=== PATIENT | female | born 1950 | race Caucasian/White ===

== ENCOUNTER 2017-09-30 07:42 | Inpatient (IN) | payer OTHER ==
[~2017-09-30] VITALS: Ht 167.6 cm; Wt 92.5 kg
[~2017-09-30 07:42] MED LIST: FLUT1DIS3 INH; HYDR12.585 PO; LOSA100T11 PO; MONT10TA25 PO; RANI-362 PO
[2017-09-30] MEDS ORDERED: GABAPENTIN 300 MG CAPSULE ONE (08:29)
[2017-09-30] MEDS ORDERED: CELECOXIB 200 MG CAPSULE ONE (08:29)
[2017-09-30] MEDS ORDERED: oxyCODONE HCL 10 MG TAB.ER.12H PO ONE (08:30)
[2017-09-30] MEDS ORDERED: ACETAMINOPHEN 500 MG TABLET ONE (08:30)
[2017-09-30] MEDS ORDERED: TRANEXAMIC ACID 650 MG TABLET ONE (08:31)
[2017-09-30] MEDS ORDERED: CEFAZOLIN 2 GM IVPB PREMIX 50 ML IV ONE (08:34)
[2017-09-30] MEDS ORDERED: CLINDAMYCIN PHOSPHATE 900 mg/50mL D5W IV ONE (09:41)
[2017-09-30] MEDS ORDERED: PROPOFOL 200MG/ 20ML VIAL (DIPRIVAN) IV ONE (09:41)
[2017-09-30] MEDS ORDERED: ROPIVACAINE 40 MG/20 ML AMP EP ONE (09:41)
[2017-09-30] MEDS ORDERED: ROPIVACAINE HCL/PF 5 MG/ML 0.5% 30 ML VIAL INJ ONE (09:41)
[2017-09-30] MEDS ORDERED: LR 1,000 ML IV.SOLN IV ONE (09:41)
[2017-09-30] MEDS ORDERED: EPINEPHrine 1 MG/ML AMP IVP ONE (09:41)
[2017-09-30] MEDS ORDERED: VANCOMYCIN HCL 1000 MG/VIAL IV ONE (09:41)
[2017-09-30] MEDS ORDERED: ROPIVACAINE 0.2% (NAROPIN) PF SOLUTION 100 ML BOTTLE EP ONE (09:41)
[2017-09-30] MEDS ORDERED: SEVOFLURANE 15 MIN GAS INH ONE (09:41)
[2017-09-30] MEDS ORDERED: NORMAL SALINE 10 ML VIAL IVP ONE (09:41)
[2017-09-30] MEDS ORDERED: NS 100 ML BAG IV ONE (09:41)
[2017-09-30] MEDS ORDERED: fentaNYL CITRATE/PF 100 MCG/2 ML AMP IVP ONE (09:41)
[2017-09-30] MEDS ORDERED: KETOROLAC TROMETHAMINE 30 MG VIAL IVP ONE (09:41)
[2017-09-30] MEDS ORDERED: MIDAZOLAM HCL 5 MG/5 ML VIAL IVP ONE (09:41)
[2017-09-30] MEDS ORDERED: ONDANSETRON HCL 4 MG/2 ML VIAL IVP ONE (09:41)
[2017-09-30] MEDS ORDERED: TRANEXAMIC ACID 1,000 MG/10 ML VIAL IV ONE (09:41)
[2017-09-30] MEDS: ROPIVACAINE 0.2% 550 ML INJ SCH ×2 (09:41→10:27)
[2017-09-30] MEDS ORDERED: MORPHINE 4 MG/ML INJ. SYRINGE IVP PRN (09:45)
[2017-09-30] MEDS ORDERED: SENNOSIDES 8.6 MG TABLET PO PRN (09:45)
[2017-09-30] MEDS ORDERED: ONDANSETRON HCL 4 MG/2 ML VIAL IVP PRN ×3 (09:45→10:30)
[2017-09-30] MEDS ORDERED: KETOROLAC TROMETHAMINE 15 MG VIAL IVP PRN (09:45)
[2017-09-30] MEDS ORDERED: VANCOMYCIN HCL 1 GM/NS PREMIX 250 ML IV ONE ×2 (09:45→10:00)
[2017-09-30] MEDS ORDERED: PROMETHAZINE HCL 25 MG/ML AMP IVP PRN (09:45)
[2017-09-30] MEDS ORDERED: LR 1,000 ML IV SCH (10:26)
[2017-09-30] MEDS ORDERED: DIPHENHYDRAMINE INJ 50 MG/ML VIAL IVP PRN (10:30)
[2017-09-30] MEDS ORDERED: MEPERIDINE HCL/PF 25 MG/ML DISP.SYRIN IVP PRN ×2 (10:30)
[2017-09-30] MEDS ORDERED: HYDROmorphone 2 MG/ML VIAL IVP PRN ×2 (10:30)
[2017-09-30] MEDS ORDERED: NALBUPHINE HCL 10 MG/ML AMP IVP PRN (10:30)
[2017-09-30] MEDS ORDERED: HYDROmorphone 1 MG INJ. 1 MG/ML AMPUL IVP PRN ×2 (10:30)
[2017-09-30] MEDS ORDERED: POLYMYXIN 500,000/BACIT.10,000 UNITS in NS IRR 1 L IR ONE (10:37)
[2017-09-30] MEDS ORDERED: HYDROmorphone 1 MG INJ. 1 MG/ML AMPUL ONE (12:46)
[2017-09-30 13:30] VITALS: BP_SYST 117
[2017-09-30] MEDS: D5LR 1,000 ML IV SCH ×2 (16:17→19:41)
[2017-09-30] MEDS: ACETAMINOPHEN 500 MG TABLET PO SCH ×2 (16:18→20:45)
[2017-09-30] MEDS: MONTELUKAST 10 MG TABLET PO SCH (18:27)
[2017-09-30 19:35] VITALS: BP_SYST 101
[2017-09-30] MEDS: GABAPENTIN 300 MG CAPSULE PO SCH (20:45)
[2017-09-30] MEDS: FAMOTIDINE 20 MG TABLET PO SCH (20:46)
[2017-09-30] MEDS: CELECOXIB 200 MG CAPSULE PO SCH (20:48)
[2017-09-30] MEDS ORDERED: FLUTICASONE 250 mCg/SALMETEROL 50 mCg DISKUS W.DEV INH SCH (21:00)
[2017-09-30] MEDS ORDERED: NON-FORMULARY MEDICATION (Ranitidine Hcl (Acid Reducer 150) 1 TAB) PO SCH (21:00)
[2017-10-01 00:32] VITALS: BP_SYST 104
[2017-10-01] MEDS: oxyCODONE HCL 5 MG TABLET PO PRN ×4 (02:19→23:43)
[2017-10-01] MEDS: D5LR 1,000 ML IV SCH ×2 (02:23→20:51)
[2017-10-01 04:30] VITALS: BP_SYST 106
[2017-10-01 06:29] LABS: BASOPHILS % (AUTO) 0.2 % (0.0-2.0); EOSINOPHILS # (AUTO) 0.1 K/uL (0.0-0.4); EOSINOPHILS % (AUTO) 0.6 % (0.0-4.0); HEMATOCRIT 34.1 % (36-48); HEMOGLOBIN 11.5 g/dL (12.0-16.0); LYMPHOCYTES # (AUTO) 1.2 K/uL (1.0-5.5); MEAN CORPUSCULAR HEMOGLOBIN 32 pg (27-31); MEAN CORPUSCULAR HGB CONC 34 % (32-36); MEAN CORPUSCULAR VOLUME 94 fL (79.0-98.0); MONOCYTES # (AUTO) 0.9 K/uL (0.0-1.0); MONOCYTES % (AUTO) 8.2 % (1.7-9.3); NEUTROPHILS # (AUTO) 8.6 K/uL (1.8-7.7); PLATELET COUNT (AUTO) 186 K/uL (130-430); RED BLOOD CELL COUNT(AUTO) 3.62 MIL/uL (4.2-6.2); RED CELL DISTRIBUTION WIDTH 12.1 % (9.0-15.0); WHITE BLOOD COUNT (AUTO) 10.8 K/uL (4.8-10.8)
[2017-10-01 06:37] LABS: CALCIUM 8.3 mg/dL (8.4-11.0); CREATININE 0.56 mg/dL (0.55-1.30); POTASSIUM 3.7 mmol/L (3.5-5.1)
[2017-10-01 08:05] VITALS: BP_SYST 104
[2017-10-01] MEDS: HYDROCHLOROTHIAZIDE 12.5 MG CAPSULE (HCTZ) PO SCH (09:00)
[2017-10-01] MEDS: LOSARTAN POTASSIUM 50 MG TABLET (COZAAR) PO SCH (09:00)
[2017-10-01] MEDS: CELECOXIB 200 MG CAPSULE PO SCH ×2 (09:18→20:54)
[2017-10-01] MEDS: FAMOTIDINE 20 MG TABLET PO SCH ×2 (09:18→20:54)
[2017-10-01] MEDS: ACETAMINOPHEN 500 MG TABLET PO SCH ×3 (09:19→20:54)
[2017-10-01] MEDS: RIVAROXABAN 10 MG TABLET PO SCH (09:31)
[2017-10-01] MEDS: ROPIVACAINE 0.2% 550 ML INJ SCH ×2 (09:41→10:27)
[2017-10-01] MEDS: DIPHENHYDRAMINE HCL 50 MG CAPSULE PO PRN ×2 (13:53→20:54)
[2017-10-01 14:48] VITALS: BP_SYST 110
[2017-10-01 17:25] VITALS: BP_SYST 185
[2017-10-01] MEDS ORDERED: FLUTICASONE/VILANTEROL 1 EACH BLST.W.DEV INH ONE (19:00)
[2017-10-01] MEDS: MONTELUKAST 10 MG TABLET PO SCH (19:10)
[2017-10-01 20:15] VITALS: BP_SYST 112
[2017-10-01] MEDS: GABAPENTIN 300 MG CAPSULE PO SCH (20:54)
[2017-10-02] VITALS (7 sets, daily range): BP systolic 106–141
[2017-10-02 06:27] LABS: BASOPHILS % (AUTO) 0.4 % (0.0-2.0); EOSINOPHILS # (AUTO) 0.3 K/uL (0.0-0.4); HEMATOCRIT 34.7 % (36-48); HEMOGLOBIN 11.4 g/dL (12.0-16.0); LYMPHOCYTES # (AUTO) 1.1 K/uL (1.0-5.5); LYMPHOCYTES % (AUTO) 14.1 % (20.5-51.5); MEAN CORPUSCULAR HEMOGLOBIN 31 pg (27-31); MEAN CORPUSCULAR HGB CONC 33 % (32-36); MEAN CORPUSCULAR VOLUME 95 fL (79.0-98.0); MONOCYTES # (AUTO) 0.7 K/uL (0.0-1.0); MONOCYTES % (AUTO) 9.8 % (1.7-9.3); NEUTROPHILS # (AUTO) 5.4 K/uL (1.8-7.7); NEUTROPHILS % (AUTO) 71.7 % (40.0-70.0); PLATELET COUNT (AUTO) 169 K/uL (130-430); RED BLOOD CELL COUNT(AUTO) 3.66 MIL/uL (4.2-6.2); RED CELL DISTRIBUTION WIDTH 12.1 % (9.0-15.0); WHITE BLOOD COUNT (AUTO) 7.5 K/uL (4.8-10.8)
[2017-10-02] MEDS: oxyCODONE HCL 5 MG TABLET PO PRN ×2 (06:32→13:54)
[2017-10-02 07:04] LABS: CALCIUM 8.5 mg/dL (8.4-11.0); CREATININE 0.64 mg/dL (0.55-1.30)
[2017-10-02] MEDS ORDERED: FLUTICASONE/VILANTEROL 1 EACH BLST.W.DEV INH SCH (09:00)
[2017-10-02] MEDS: RIVAROXABAN 10 MG TABLET PO SCH (09:40)
[2017-10-02] MEDS: LOSARTAN POTASSIUM 50 MG TABLET (COZAAR) PO SCH (09:40)
[2017-10-02] MEDS: FAMOTIDINE 20 MG TABLET PO SCH (09:41)
[2017-10-02] MEDS: HYDROCHLOROTHIAZIDE 12.5 MG CAPSULE (HCTZ) PO SCH (09:41)
[2017-10-02] MEDS: CELECOXIB 200 MG CAPSULE PO SCH (09:41)
[2017-10-02] MEDS: ACETAMINOPHEN 500 MG TABLET PO SCH ×2 (09:49→15:51)
== END 2017-10-02 16:15 | DRG 470 ==
LOC: SMU 07:42 → STU 13:30 → SMU 10-02 10:11
PROVIDERS: ADMIT Orthopaedic Surgery; ATTEND Orthopaedic Surgery
PROC: 0SRC0J9 Replacement of Right Knee Joint with Synthetic Substitute, Cemented, Open Approach (ICD-10-PCS; principal; 2017-09-30 10:00)
DX: M17.11 Unilateral primary osteoarthritis, right knee (principal); I10 Essential (primary) hypertension; J45.909 Unspecified asthma, uncomplicated; Z85.42 Personal history of malignant neoplasm of other parts of uterus; Z88.0 Allergy status to penicillin
CPT/HCPCS: 36415; 80048; 85025; 87081; 88305; 88311; 97039; 97110-GP; 97116-GP; 97530-GP; C1713; C1776; J0171; J0690; J1170; J1885; J2250; J2270; J2405; J2704; J2795; J3010; J3370; J3490; J7120; Q0163

== ENCOUNTER 2022-11-29 05:30 | Day surgery (SDC) | payer OTHER ==
[~2022-11-29] VITALS: Ht 165.1 cm; Wt 106.6 kg
[~2022-11-29 05:30] MED LIST changes: -LOSA100T11 PO; +LOSA100T3 PO; +MONT-40 PO; -MONT10TA25 PO
[2022-11-29] MEDS ORDERED: SIMETHICONE 40 MG/0.6 ML ML ONE (07:35)
[2022-11-29] MEDS: fentaNYL CITRATE/PF 100 MCG/2 ML AMP ONE ×3 (07:39→07:51)
[2022-11-29] MEDS: MIDAZOLAM HCL 5 MG/5 ML VIAL ONE ×3 (07:39→07:48)
[2022-11-29 12:19] VITALS: BP_SYST 96
== END 2022-11-29 08:40 | disposition home or self-care (01) ==
LOC: SMU 05:30 → SDS 05:30
PROVIDERS: ATTEND Internal Medicine Gastroenterology
DX: R13.10 Dysphagia, unspecified (principal); K29.50 Unspecified chronic gastritis without bleeding; K25.9 Gastric ulcer, unspecified as acute or chronic, without hemorrhage or perforation; K20.90 Esophagitis, unspecified without bleeding; Z88.0 Allergy status to penicillin; Z79.01 Long term (current) use of anticoagulants; Z79.899 Other long term (current) drug therapy; Z20.822 Contact with and (suspected) exposure to COVID-19
CPT/HCPCS: 36415 ×2; 43248; 43239; 87426; 88305; 88312; 88313; 99152; U0003; G0378; J2250; J3010; C1769

== ENCOUNTER 2023-02-21 06:00 | Day surgery (SDC) | payer OTHER ==
[~2023-02-21] VITALS: Ht 165.1 cm; Wt 108.9 kg
[~2023-02-21 06:00] MED LIST changes: -LOSA100T3 PO; +LOSA100T4 PO
[2023-02-21] MEDS ORDERED: LIDOCAINE 1% 10 MG/ML, 20 ML MDV INJ ONE (06:01)
[2023-02-21] MEDS ORDERED: LR 1,000 ML IV.SOLN IV ONE (06:01)
[2023-02-21] MEDS ORDERED: PROPOFOL 200MG/ 20ML VIAL (DIPRIVAN) IV ONE (06:01)
[2023-02-21 09:57] VITALS: BP_SYST 118
== END 2023-02-21 09:35 | disposition home or self-care (01) ==
LOC: SDS 06:00 → SMU 06:00 → SDS 09:35
PROVIDERS: ATTEND Internal Medicine Gastroenterology
DX: K56.41 Fecal impaction (principal); K63.5 Polyp of colon; K57.30 Diverticulosis of large intestine without perforation or abscess without bleeding; K64.9 Unspecified hemorrhoids; Z86.010 Personal history of colon polyps; Z85.42 Personal history of malignant neoplasm of other parts of uterus; Z79.899 Other long term (current) drug therapy; Z20.822 Contact with and (suspected) exposure to COVID-19
CPT/HCPCS: 45385; 87426; 36415; 88305; J2001; J2704; J7120

== ENCOUNTER 2023-08-12 23:18 | Emergency (ER) | payer OTHER ==
[~2023-08-12] VITALS: Ht 165.1 cm; Wt 111.1 kg
[2023-08-12 23:27] VITALS: BP_SYST 153; PULSE 99; RESP 18; TEMP 98.1; O2SAT 95
[2023-08-13 00:40] LABS: BASOPHILS % (AUTO) 0.4 % (0.0-2.0); EOSINOPHILS # (AUTO) 0.2 K/uL (0.0-0.4); EOSINOPHILS % (AUTO) 3.1 % (0.0-4.0); HEMATOCRIT 41.2 % (36-48); HEMOGLOBIN 13.4 g/dL (12.0-16.0); LYMPHOCYTES # (AUTO) 1.7 K/uL (1.0-5.5); LYMPHOCYTES % (AUTO) 28.6 % (20.5-51.5); MEAN CORPUSCULAR HEMOGLOBIN 30 pg (27-31); MEAN CORPUSCULAR HGB CONC 32 % (32-36); MEAN CORPUSCULAR VOLUME 93 fL (79.0-98.0); MONOCYTES # (AUTO) 0.5 K/uL (0.0-1.0); MONOCYTES % (AUTO) 8.8 % (1.7-9.3); NEUTROPHILS # (AUTO) 3.5 K/uL (1.8-7.7); NEUTROPHILS % (AUTO) 59.1 % (40.0-70.0); PLATELET COUNT (AUTO) 179 K/uL (130-430); RED BLOOD CELL COUNT(AUTO) 4.43 MIL/uL (4.2-6.2)
[2023-08-13 00:50] LABS: ANION GAP 7 (5-15); CALCIUM 8.9 mg/dL (8.4-11.0); CARBON DIOXIDE 29 mmol/L (23-29); CHLORIDE 106 mmol/L (98-107); CREATININE 0.64 mg/dL (0.55-1.30); GLUCOSE 121 mg/dL (74-106); POTASSIUM 3.4 mmol/L (3.5-5.1); SODIUM SERUM 142 mmol/L (136-145); UREA NITROGEN, BLOOD 12 mg/dL (8-21)
[2023-08-13 01:03] LABS: ALANINE AMINOTRANSFERASE 17 U/L (12-78); ALBUMIN 3.1 g/dL (3.4-4.8); ASPARTATE AMINOTRANSFERASE 11 U/L (10-37); THYROID STIMULATING HORMONE 1.83 uIu/mL (0.34-4.82); TOTAL BILIRUBIN 0.3 mg/dL (0.0-1.0); TOTAL PROTEIN, SERUM 5.9 g/dL (6.4-8.3)
[2023-08-13 02:00] VITALS: BP_SYST 123; PULSE 79; RESP 16; TEMP 98.7; O2SAT 94
[2023-08-13] MEDS ORDERED: POTASSIUM CHLORIDE 20 MEQ/PKT PACKET PO ONE (02:00)
== END 2023-08-13 02:00 | disposition home or self-care (01) ==
LOC: SED 23:18
DX: R00.2 Palpitations (principal); E87.6 Hypokalemia; J45.909 Unspecified asthma, uncomplicated; I10 Essential (primary) hypertension; K21.9 Gastro-esophageal reflux disease without esophagitis; Z88.0 Allergy status to penicillin; Z88.8 Allergy status to other drugs, medicaments and biological substances; Z86.79 Personal history of other diseases of the circulatory system; Z85.9 Personal history of malignant neoplasm, unspecified; Z79.899 Other long term (current) drug therapy
CPT/HCPCS: 36415; 71045; 80053; 83880; 84439; 84443; 84484; 85025; 85379; 93005; 99285